=== PATIENT | male | born 1990 | race Two or more races ===

== ENCOUNTER 2018-04-15 18:14 | Emergency (ER) | payer OTHER ==
--- NOTE | 2018-04-15 18:41 | ER Document Report ---
ED Medical Screen (RME) - General Chief Complaint: Testicular Pain Stated Complaint: TESTICAL PAIN Time Seen by Provider: 04/15/18 18:38 Notes: 27 years old male presents today with left testicular pain since last night. He was doing a lot of heavy work prior to that. No fever chills or discharges. On examination left testicle is larger tender on palpation. - Related Data Allergies/Adverse Reactions: No Known Allergies Allergy (Unverified 04/15/18 18:17) Physical Exam - Vital signs Vitals: Temp Pulse Resp BP Pulse Ox 98.7 F 69 16 129/67 H 97 04/15/18 18:34 04/15/18 18:34 04/15/18 18:34 04/15/18 18:34 04/15/18 18:34 Course - Vital Signs Vital signs: Temp Pulse Resp BP Pulse Ox 98.7 F 69 16 129/67 H 97 04/15/18 18:34 04/15/18 18:34 04/15/18 18:34 04/15/18 18:34 04/15/18 18:34
--- NOTE | 2018-04-15 19:41 | ER Document Report ---
ED General - General Chief Complaint: Testicular Pain Stated Complaint: TESTICAL PAIN Time Seen by Provider: 04/15/18 18:38 Primary Care Provider: ABHIJIT QUINTERO MD [ACTIVE STAFF] - Follow up in 3-5 days (OR YOUR PRIMARY CARE. ) Notes: Patient is a 27-year-old male that presents to the emergency department for chief complaint of left testicular pain. Patient states that he started feeling this yesterday, he rates the pain as a 6 out of 10 describes as an ache in the posterior portion of his left testicle, sharp in nature at times, and worse if he is lying in a particular position, or if he bumps up against it. He is ever had any pain in his testicles in the past, aside from injuries, the pain is been constant all day, and not improving so he decided come to the emergency department. Denies any nausea, vomiting, bulging or masses in the testicles, denies having any abdominal pain, dysuria or hematuria. Denies any penile discharge. He is sexually active, , and states he is maintaining a monog amous relationship with his . Past Medical History: Denies chronic medical conditions Past Surgical History: Denies surgical history Social History: Admits to chewing tobacco, and occasional alcohol use, denies illicit drug use. Family History: Reviewed and noncontributory for presenting illness Allergies: Reviewed, see documented allergy list. REVIEW OF SYSTEMS: Other than noted above, the 12 point review of systems was reviewed with the patient and were negative, all pertinent findings are included in the HPI. PHYSICAL EXAMINATION: Vital signs reviewed, nursing noted reviewed. GENERAL: Well-appearing, well-nourished and in no acute distress. HEAD: Atraumatic, normocephalic. EYES: Eyes appear normal, extraocular movements intact, sclera anicteric, conjunctiva are normal. ENT: nares patent, oropharynx clear without exudates. Moist mucous membranes. NECK: Normal range of motion, supple without lymphadenopathy LUNGS: Breath sounds clear to auscultation bilaterally and equal. No wheezes rales or rhonchi. HEART: Regular rate and rhythm without murmurs ABDOMEN: Soft, nontender, normoactive bowel sounds. No rebound, guarding, or rigidity. No masses appreciated. Male genital: Penis is circumcised, no blood or discharge at the meatus, testicles appear normal in size, no scrotal edema or swelling or lesions, the epididymis is tender on the left, but not swollen or grossly abnormal, nontender on the right. Bilateral testicles are vertical lie, intact cremaster reflex bilaterally. EXTREMITIES: Nontender, good range of motion, no pitting or edema. NEUROLOGICAL: No focal neurological deficits. Moves all extremities spontaneously Motor and sensory grossly intact on exam. PSYCH: Normal mood, normal affect. SKIN: Warm, Dry, normal turgor, no rashes or lesions noted on exposed skin - Related Data Allergies/Adverse Reactions: No Known Allergies Allergy (Unverified 04/15/18 18:17) Past Medical History - Social History Smoking Status: Never Smoker Chew tobacco use (# tins/day): Yes Family History: Reviewed & Not Pertinent Patient has suicidal ideation: No Patient has homicidal ideation: No Renal/ Medical History: Denies: Hx Peritoneal Dialysis Physical Exam - Vital signs Vitals: Temp Pulse Resp BP Pulse Ox 98.7 F 69 16 129/67 H 97 04/15/18 18:34 04/15/18 18:34 04/15/18 18:34 04/15/18 18:34 04/15/18 18:34 Course - Re-evaluation Re-evalutation: Patient seen and examined vital signs reviewed. Laboratory data and imaging were ordered as appropriate for the patient's presenting symptoms and complaint, with consideration of any critical or life threatening conditions that may be associated with their obtained history and exam as noted above. Patient was treated with IM Toradol 60 mg for his pain Results were reviewed when available and demonstrated negative UA and blood work, his scrotal ultrasound was only positive for small hydroceles, negative for evidence of torsion The patient was re-evaluated and was improved Evaluation was most consistent with left epididymitis, patient be treated with anti-inflammatories advised to follow-up with his primary care. Results were discussed with the patient at this point, after careful consider ation I feel that that patient can be discharged from the emergency department, the patient was educated treatments and reasons to return to the emergency department based on their presumed diagnosis as noted above, they were advised to followup with a primary care physician in 2-3 days. Patient was agreeable to plan of care. *Note is created using voice recognition software and may contain spelling, syntax or grammatical errors. Laboratory 04/15/18 04/15/18 20:26 20:26 WBC 6.5 RBC 5.06 Hgb 14.3 Hct 41.8 MCV 83 MCH 28.3 MCHC 34.3 RDW 13.4 Plt Count 245 Seg Neutrophils % 42.2 Lymphocytes % 46.5 H Monocytes % 7.7 Eosinophils % 3.0 Basophils % 0.6 Absolute Neutrophils 2.7 Absolute Lymphocytes 3.0 Absolute Monocytes 0.5 Absolute Eosinophils 0.2 Absolute Basophils 0.0 Urine Color YELLOW Urine Appearance CLEAR Urine pH 5.0 Ur Specific [place] 1.029 Urine Protein NEGATIVE Urine Glucose (UA) NEGATIVE Urine Ketones TRACE H Urine Blood NEGATIVE Urine Nitrite NEGATIVE Urine Bilirubin NEGATIVE Urine Urobilinogen 4.0 H Ur Leukocyte Esterase NEGATIVE Urine WBC (Auto) 1 Urine RBC (Auto) 0 Squamous Epi Cells Auto <1 Urine Mucus (Auto) OCC Urine Ascorbic Acid 40 H Scrotum Ultrasound 04/15/18 18:40 IMPRESSION: Small hydroceles. Blood flow seen in each testicle. - Vital Signs Vital signs: Temp Pulse Resp BP Pulse Ox 98.0 F 61 16 127/69 H 99 04/15/18 22:00 04/15/18 22:00 04/15/18 22:00 04/15/18 22:00 04/15/18 22:00 - Laboratory Result Diagrams: 04/15/18 20:26 Laboratory results interpreted by me: 04/15/18 04/15/18 20:26 20:26 Lymphocytes % 46.5 H Urine Ketones TRACE H Urine Urobilinogen 4.0 H Urine Ascorbic Acid 40 H Discharge - Discharge Clinical Impression: Epididymitis Condition: Stable Disposition: HOME, SELF-CARE Instructions: Epididymitis ([facility]) Additional Instructions: Please wear supportive briefs to help with your pain, and take the anti- inflammatory as prescribed over the next 7-10 days twice daily, make sure you do take it twice a day to help with the inflammation. Prescriptions: Naproxen [Naprosyn] 500 mg PO BID #30 tablet Referrals: ABHIJIT QUINTERO MD [ACTIVE STAFF] - Follow up in 3-5 days (OR YOUR PRIMARY CARE. )
--- NOTE | 2018-04-15 19:54 | RADIOLOGY REPORT (SQ) ---
EXAM DESCRIPTION: U/S SCROTUM W/DOPPLER COMPLETED DATE/TIME: 04/15/2018 7:34 pm REASON FOR STUDY: Left testicular torsion COMPARISON: None. TECHNIQUE: Static and realtime guzmán scale imaging of the scrotum and testes. Selected color Doppler and spectral images recorded to document blood flow. LIMITATIONS: None. FINDINGS: RIGHT: TESTICLE: Normal size, 4.8 x 2.5 x 3.7 cm. Normal echotexture. Normal blood flow. No mass. EPIDIDYMIS: Normal. 1 x 1.2 x 1.3 cm. HYDROCELE OR VARICOCELE: Small right hydrocele. HERNIA OR EXTRA-TESTICULAR MASS: No. OTHER: No other significant finding. LEFT: TESTICLE: Normal size, 4.6 x 2.1 x 4 cm. Normal echotexture. Normal blood flow. No mass. EPIDIDYMIS: Normal. 1 x 1 x 2 cm. HYDROCELE OR VARICOCELE: Small left hydrocele. HERNIA OR EXTRA-TESTICULAR MASS: No. OTHER: No other significant finding. IMPRESSION: Small hydroceles. Blood flow seen in each testicle. TECHNICAL DOCUMENTATION: JOB ID: [id number]- All Rights Reserved Reading location - IP/workstation name: [email or web address]
[2018-04-15] MEDS ORDERED: KETOROLAC TROMETHAMINE 60 MG/2 ML SDV IM ONE (20:34)
[2018-04-15 20:48] LABS: ABSOLUTE EOSINOPHILS # (AUTO) 0.2 10^3/uL (0.0-0.6); ABSOLUTE MONOCYTES (AUTO) 0.5 10^3/uL (0.1-1.4); ABSOLUTE NEUT (AUTO) 2.7 10^3/uL (1.7-8.2); BASOPHILS % (AUTO) 0.6 % (0-2); HEMATOCRIT 41.8 % (37.9-51.0); HEMOGLOBIN 14.3 g/dL (13.5-17.0); LYMPHOCYTES % (AUTO) 46.5 % (13-45); MEAN CORPUSCULAR HEMOGLOBIN 28.3 pg (27.0-33.4); MEAN CORPUSCULAR HGB CONC 34.3 g/dL (32.0-36.0); MEAN CORPUSCULAR VOLUME 83 fl (80-97); MONOCYTES % (AUTO) 7.7 % (3-13); PLATELET COUNT 245 10^3/uL (150-450); RED BLOOD COUNT 5.06 10^6/uL (4.35-5.55); RED CELL DISTRIBUTION WIDTH 13.4 % (11.5-14.0); SEGMENTED NEUTROPHILS % (AUTO) 42.2 % (42-78); TOTAL CELLS COUNTED % (AUTO) 100 %; WHITE BLOOD COUNT 6.5 10^3/uL (4.0-10.5)
[2018-04-15 21:03] LABS: APPEARANCE,URINE CLEAR; BILIRUBIN,URINE NEGATIVE (NEGATIVE); COLOR,URINE YELLOW; GLUCOSE, URINE NEGATIVE (NEGATIVE); KETONES,URINE TRACE mg/dL (NEGATIVE); LEUKOCYTE ESTERASE,URINE NEGATIVE (NEGATIVE); NITRITE,URINE NEGATIVE (NEGATIVE); PROTEIN,URINE NEGATIVE (NEGATIVE); URINE SPECIFIC GRAVITY 1.029
[2018-04-15 22:03] VITALS: BP 127/69
== END 2018-04-15 22:04 | disposition home or self-care (01) ==
LOC: ER 18:14
DX: N45.1 Epididymitis (principal); N50.812 Left testicular pain
CPT/HCPCS: 99284; 96372; 36415; 85025; 81001; 76870; 93976; J1885